=== PATIENT | female | born 1970 | race Caucasian/White ===

== ENCOUNTER 2018-09-06 08:53 | Day surgery (SDC) | payer BC ==
[2018-09-06] MEDS ORDERED: Midazolam 1 MG/ML 2 ML SDV IV ONE (08:54)
[2018-09-06] MEDS ORDERED: Propofol 200 MG/20 ML SDV IV ONE (08:54)
[2018-09-06] MEDS ORDERED: Lidocaine 1% PF 2 ML SDV INJECT ONE (08:54)
[2018-09-06] MEDS ORDERED: fentaNYL 100 MCG/2 ML SDV IV ONE (08:54)
[2018-09-06] MEDS ORDERED: Lactated Ringers 1,000 ML IV SCH (09:15)
[2018-09-06] MEDS ORDERED: Lidocaine 1% with EPINEPHrine 1:100,000 20 ML MDV INJECT ONE (09:41)
[2018-09-06] MEDS ORDERED: Bupivacaine 0.5% 30 ML SDV INJECT ONE (09:41)
[2018-09-06] MEDS ORDERED: Acetaminophen/Codeine 300-30 MG Tab PO PRN (10:08)
--- NOTE | 2018-09-06 10:08 | PCM.OPNOTE ---
- General Post-Op/Procedure Note Date of Surgery/Procedure: 09/06/18 Operative Procedure(s): excisional bx of rue mass Findings: 7 cm lipoma Pre Op Diagnosis: masss rue Post-Op Diagnosis: Same Anesthesia Technique: Local (7 ml 1 % lido with epi/0.5% buvipicaine), MAC Primary Surgeon: Juan Carlos Claros Anesthesia Provider: Slava Fernández Pathology: lipoma Complications: None Condition: Good Free Text/Narrative:: see dictation
--- NOTE | 2018-09-06 14:46 | OR ---
DATE OF OPERATION: 09/06/2018 SURGEON: Juan Carlos Claros MD PROCEDURE PERFORMED: Excisional biopsy of right upper extremity mass. PREOPERATIVE DIAGNOSIS: Right upper extremity mass. POSTOPERATIVE DIAGNOSIS: Lipoma. INDICATIONS FOR PROCEDURE: This is a 47-year-old white female who has a 3-year history of a mass overlying her biceps. It has gotten progressively larger. It is currently at 7 cm in diameter and appears to be consistent with a lipoma. She was offered and accepted excisional biopsy. DESCRIPTION OF PROCEDURE: After an excellent IV sedation was administered, the patient was prepped and draped in the usual sterile manner. 7 mL of 1:1 mixture of 1% lidocaine with epinephrine, 0.5% bupivacaine was used to create a field block. A vertical midline incision running in the axis of the extremity was then made over the mass. A small covering vein was clamped, divided and tied with 2-0 Vicryl ties. The lipoma itself was easily removed with blunt dissection and appeared entirely consistent with a lipoma. There was no marked adhesion or growth into any of the surrounding structures. The wound was irrigated and was then closed in 2 layers, primary layer with a 3-0 Vicryl used to approximate subcu tissue and then a running subcu 4-0 Vicryl was used to close the skin. Needle, sponge, and instrument counts were reported as correct. Steri-Strips and bandage were applied. /[id number] /MODL
== END 2018-09-06 11:10 | disposition home or self-care (01) ==
LOC: FB.SDS 08:53
PROVIDERS: ATTEND Surgery
DX: D17.21 Benign lipomatous neoplasm of skin and subcutaneous tissue of right arm (principal); K21.9 Gastro-esophageal reflux disease without esophagitis; F17.210 Nicotine dependence, cigarettes, uncomplicated; M19.079 Primary osteoarthritis, unspecified ankle and foot; Z79.899 Other long term (current) drug therapy
CPT/HCPCS: 24071; 81025; 88304; J2001; J2250; J2704; J3010; J3490; J7120